=== PATIENT | female | born 1965 | race Two or more races ===

== ENCOUNTER 2017-01-23 19:08 | Emergency (ER) | payer SELFPAY ==
[~2017-01-23] VITALS: Ht 177.8 cm; Wt 90.7 kg
[2017-01-23 20:35] LABS: Basophils # (auto) 0.1 uL; Basophils % (auto) 0.4 % (0.0-2.0); Eosinophils # (auto) 0.1 uL; Eosinophils % (auto) 0.9 % (0.0-7.0); Hematocrit 40.8 % (36.0-46.0); Hemoglobin 13.8 g/dL (12.2-16.2); Lymphocytes # (auto) 5.3 uL; Lymphocytes % (auto) 38.9 % (10.0-50.0); Mean Corpuscular Hgb Conc. 33.7 g/dL (32.0-36.0); Monocytes # (auto) 0.8 uL; Monocytes % (auto) 5.5 % (0.0-12.0); Neutrophils # (auto) 7.3 uL; Neutrophils % (auto) 54.3 % (37.0-80.0); Nucleated Red Blood Cells % 0.1 %; Platelet Count (auto) 366 10^3/uL (140-450); Red Cell Distribution Width 13.2 % (11.8-14.3); White Blood Cell 13.6 10^3/uL (4.4-10.8)
[2017-01-23 20:41] LABS: Albumin 3.7 g/dL (3.4-5.0); Anion Gap 8 (5-15); Aspartate Aminotransferase 19 U/L (15-37); BUN/Creatinine Ratio 17.1; Blood Urea Nitrogen 12 mg/dL (7-18); Calcium 9.3 mg/dL (8.5-10.1); Carbon Dioxide 26 mmol/L (21-32); Chloride 105 mmol/L (98-107); GFR African American 113 mL/min; GFR Non-African American 93 mL/min; Glucose 90 mg/dL (74-106); Potassium 4.1 mmol/L (3.5-5.1); Sodium 139 mmol/L (136-145)
[2017-01-23 20:46] LABS: Alkaline Phosphatase 96 U/L (45-117); Bilirubin, Total 0.3 mg/dL (0.2-1.0); Total Protein 7.8 g/dL (6.4-8.2)
[2017-01-24 03:21] LABS: Urine Bilirubin Negative (Negative); Urine Blood TRACE /uL (Negative); Urine Color Yellow (Yellow); Urine Glucose Normal (Normal); Urine Ketone Negative (Negative); Urine Nitrite Negative (Negative); Urine RBC 1 /hpf (0 - 4); Urine Squamous Epithelial Cell FEW /hpf (<5); Urine Urobilinogen Normal (Negative); Urine pH 5.5 (5.0-8.0)
[2017-01-24] MEDS ORDERED: MORPHINE SULF INJ 2 MG/ML SYRINGE 1ML IV ONE (03:30)
[2017-01-24] MEDS ORDERED: ONDANSETRON HCL 4 MG/2 ML VIAL IV ONE (03:30)
[2017-01-24] MEDS ORDERED: SODIUM CHLORIDE 0.9% 1,000 ML IV ONE (03:30)
[2017-01-24 04:24] VITALS: BP 124/76
== END 2017-01-24 04:46 | disposition home or self-care (01) ==
LOC: ER 19:11
DX: K80.20 Calculus of gallbladder without cholecystitis without obstruction (principal); D72.829 Elevated white blood cell count, unspecified
CPT/HCPCS: 36415; 71020; 74176; 80053; 81001; 81025; 83690; 84484; 85025; 93005; 96361; 96374; 96375; 99285; J2270; J2405; J7030

== ENCOUNTER 2021-06-17 16:12 | Emergency (ER) | payer MEDICAID, OTHER ==
[~2021-06-17] VITALS: Ht 165.1 cm; Wt 77.1 kg
[2021-06-17 17:42] LABS: Urine Bacteria NONE SEEN /hpf (None Seen); Urine Blood Negative /uL (Negative); Urine Specific Gravity 1.007 (1.001-1.035); Urine WBC 1 /hpf (0 - 5)
[2021-06-17 18:32] LABS: Basophils # (auto) 0 10 ^3/uL (0-0.2); Basophils % (auto) 0.3 % (0.0-2.0); Eosinophils # (auto) 0.1 10 ^3/uL (0-0.8); Eosinophils % (auto) 1.2 % (0.0-7.0); Hematocrit 36.9 % (36.0-46.0); Hemoglobin 12.2 g/dL (12.2-16.2); Mean Corpuscular Hemoglobin 27.6 pg (28.0-32.0); Mean Corpuscular Hgb Conc. 33.2 g/dL (32.0-36.0); Mean Corpuscular Volume 83.4 fL (80.0-100.0); Monocytes # (auto) 0.4 10 ^3/uL (0-1.3); Monocytes % (auto) 5.6 % (0.0-12.0); Neutrophils % (auto) 52.9 % (37.0-80.0); Nucleated Red Blood Cells % 0.2 %; Red Blood Cells 4.42 10^6/uL (4.0-5.20); Red Cell Distribution Width 14.8 % (11.8-14.3); White Blood Cell 7.5 10^3/uL (4.4-10.8)
[2021-06-17 18:43] LABS: Albumin 3.7 g/dL (3.4-5.0); Calcium 9.2 mg/dL (8.5-10.1); Potassium 4.2 mmol/L (3.5-5.1)
[2021-06-17 18:45] LABS: BUN/Creatinine Ratio 24.2
[2021-06-17 18:47] LABS: Bilirubin, Total 0.2 mg/dL (0.2-1.0); Total Protein 7.6 g/dL (6.4-8.2)
[2021-06-17] MEDS ORDERED: IOHEXOL 300 MG/ML 100ML BOTTLE IJ ONE (19:58)
[2021-06-17] MEDS ORDERED: LIDOCAINE VISCOUS 2% 15ML UD PO ONE (20:45)
[2021-06-17] MEDS ORDERED: ALUM & MAG HYDROX-SIMETH LIQ(MAALOX) 30 ML PO ONE (20:45)
[2021-06-17] MEDS ORDERED: ONDANSETRON ODT 4 MG TAB PO ONE (20:45)
[2021-06-17] MEDS ORDERED: FAMOTIDINE 20 MG TAB PO ONE (20:45)
[2021-06-17 23:08] VITALS: BP 118/59
== END 2021-06-17 23:28 | disposition home or self-care (01) ==
LOC: ER 16:15
DX: K82.8 Other specified diseases of gallbladder (principal)
CPT/HCPCS: 36415; 71045; 74177; 76705; 80053; 81001; 82150; 83690; 84484; 85025; 93005; 99285; Q0162; Q9967

== ENCOUNTER 2023-05-21 12:16 | Emergency (ER) | payer MEDICAID ==
[~2023-05-21] VITALS: Ht 165.1 cm; Wt 87.3 kg
[2023-05-21 14:01] VITALS: BP 106/52; PULSE 95; RESP 16; TEMP 97.9; O2SAT 96
[2023-05-21 15:36] LABS: COVID19 ANTIGEN SOFIA FIA NEGATIVE (NEGATIVE); Rapid Strep A Screen-Throat Negative
[2023-05-21 15:37] LABS: Rapid Influenza A Negative (Negative)
[2023-05-21 15:39] LABS: Rapid Influenza B Positive (Negative)
[2023-05-21] MEDS ORDERED: AZIT500T66 PO (16:07)
== END 2023-05-21 16:10 | disposition home or self-care (01) ==
LOC: ER 12:16
DX: J10.1 Influenza due to other identified influenza virus with other respiratory manifestations (principal); J18.9 Pneumonia, unspecified organism; R07.89 Other chest pain; Z20.822 Contact with and (suspected) exposure to COVID-19
CPT/HCPCS: 36415; 71046; 87070; 87426; 87804; 87880

== ENCOUNTER 2024-12-03 13:56 | Inpatient (IN) | payer MEDICAID ==
[~2024-12-03] VITALS: Ht 165.1 cm; Wt 88.6 kg
[~2024-12-03 13:56] MED LIST: AZIT500T66 PO
[2024-12-03 14:46] LABS: Hematocrit 38.8 % (36.0-46.0); Hemoglobin 13.3 g/dL (12.2-16.2); Mean Corpuscular Hemoglobin 29.2 pg (28.0-32.0); Mean Corpuscular Volume 85.4 fL (80.0-100.0); Nucleated Red Blood Cells % 0.1 %
--- NOTE | 2024-12-03 14:50 | ED.PDOC ---
General HPI Comments 59 y/o F, with PMHx of cervical cancer, stomach cancer, DM, and HLD present to the ED for CC of urinary. Patient states, she has been experiencing hematuria with associated back pain onset, x1day ago. Patient denies burning with urination, flank pain, vaginal discharge, fever, or suprapubic abdominal pain. No other symptoms or modifying factors present at this time. Chief Complaint: Urinary Time Seen by MD: 14:30 Primary Care Provider: DENIES Reviewed notes: Nurses Notes, Medications, Allergies Allergies: Coded Allergies: NO KNOWN ALLERGIES (Unverified , 01/23/17) Home Meds Active Scripts Nitrofurantoin Monohydrate Mac (Macrobid) 100 Mg Cap, 100 MG PO BID for 7 Days, #14 CAP Prov:ELIO OWENS MD 12/03/24 Azithromycin (Azithromycin) 500 Mg Tab, 1 TAB PO DAILY, #3 TAB 500 mg PO once, then 250 mg PO once daily for 4 days Prov:KATHY HAWTHORNE PAC 05/21/23 Information Source: Patient Mode of Arrival: Ambulatory Severity: Moderate Timing: Days Duration: Since onset Prehospital treatment: None Onset: Spontaneous Symptoms: Hematuria History of: None Location: None Modifying factors: None associated signs and symptoms: Back Pain, Hematuria Past Medical History PAST MEDICAL HISTORY: Cancer, DM, Gallstones, High Lipids Surgical History: Denies all surgeries ORTHOPEDIC NURSE PRACTITIONER History: No Pertinent ORTHOPEDIC NURSE PRACTITIONER History Family History Family History: Unknown Social History Smoker: Non-Smoker Alcohol: Denies ETOH Use Drugs: Denies Drug Use Lives In: Home Constitutional: denies: chills, diaphoresis, fatigue, fever, malaise, sweats, weakness, others EENTM: denies: blurred vision, double vision, ear bleeding, ear discharge, ear drainage, ear pain, ear ringing, eye pain, eye redness, hearing loss, mouth pain, mouth swelling, nasal discharge, nose bleeding, nose congestion, nose pain, photophobia, tearing, throat pain, throat swelling, voice changes, others Respiratory: denies: cough, hemoptysis, orthopnea, SOB at rest, shortness of breath, SOB with excertion, stridor, wheezing, others Cardiovascular: denies: chest pain, dizzy spells, diaphoresis, Dyspnea on exertion, edema, irregular heart beat, left arm pain, lightheadedness, palpitations, PND, syncope, others Gastrointestinal: denies: abdomen distended, abdominal pain, blood streaked bowels, constipated, diarrhea, dysphagia, difficulty swallowing, hematemesis, melena, nausea, poor appetite, poor fluid intake, rectal bleeding, rectal pain, vomiting, others Genitourinary: reports: hematuria; denies: abnormal vagina bleeding, burning, dyspareunia, dysuria, flank pain, frequency, incontinence, pain, , vagina discharge, urgency, others Neurological: denies: dizziness, fainting, headache, left sided numbness, left sided weakness, numbness, paresthesia, pre-existing deficit, right sided numbness, right sided weakness, seizure, speech problems, tingling, tremors, weakness, others Musculoskeletal: reports: back pain; denies: gout, joint pain, joint swelling, muscle pain, muscle stiffness, neck pain, others Integumetry: denies: bruises, change in color, change in hair/nails, dryness, laceration, lesions, lumps, rash, wounds, others Allergic/Immunocompromised: denies: Difficulty Healing, Frequent Infections, Hives, Itching, others Hematologic/Lymphatic: denies: anemia, blood clots, easy bleeding, easy bruising, swollen glands, others Endocrine: denies: excessive hunger, excessive sweating, excessive thirst, excessive urination, flushing, intolerance to cold, intolerance to heat, unexplained weight gain, unexplained weight loss, others Psychiatric: denies: anxiety, bipolar disorder, depression, hopeless, panic disorder, schizophrenia, sleepless, suicidal, others All Other Systems: Reviewed and Negative Physical Exam General Appearance: Moderate Distress HEENT: Normal ENT Inspection, Pharynx Normal, TMs Normal Neck: Full Range of Motion, Non-Tender, Normal, Normal Inspection Respiratory: Chest Non-Tender, Lungs Clear, No Accessory Muscle Use, No Respiratory Distress, Normal Breath Sounds Cardiovascular: No Edema, No JVD, No Murmur, No Gallop, Normal Peripheral Pulses, Regular Rate/Rhythm Breast Exam: Deferred Gastrointestinal: No Organomegaly, Non Tender, No Pulsatile Mass, Normal Bowel Sounds, Soft Genitalia: Deferred Pelvic: Deferred Rectal: Deferred Extremities: No calf tenderness, Normal capillary refill, Normal inspection, Normal range of motion, Non-tender, No pedal edema Musculoskeletal : Apperance: Normal Neurologic: Alert, pharmacist critical care II-XII nml as Tested, No Motor Deficits, Normal Affect, Normal Mood, No Sensory Deficits Cerebellar Function: Normal Reflexes: Normal Skin: Dry, Normal Color, Warm Peripheral Pulses: 3+ Radial (R), 3+ Radial (L) Lymphatic: No Adenopathy Was a procedure done? Was a procedure done?: No Differential Diagnosis Kidney stone (Female): Pyelonephritis, Urinary obstruction, Urolithiasis Kidney stone (Male): N/A Penile/Scrotal: N/A Urinary Problem (Male): N/A Urinary Problem (Female): UTI X-Ray, Labs, Meds, VS Vital Signs Date Time Temp Pulse Resp B/P (MAP) Pulse Ox O2 Delivery O2 Flow Rate FiO2 12/03/24 13:56 98.3 78 16 155/85 99 98.3 Lab Test 12/03/24 14:32 Range/Units White Blood Count 8.5 4.4-10.8 10^3/uL Red Blood Count 4.54 4.0-5.20 10^6/uL Hemoglobin 13.3 12.2-16.2 g/dL Hematocrit 38.8 36.0-46.0 % Mean Corpuscular Volume 85.4 80.0-100.0 fL Mean Corpuscular Hemoglobin 29.2 28.0-32.0 pg Mean Corpuscular Hemoglobin Concent 34.2 32.0-36.0 g/dL Red Cell Distribution Width 13.9 11.8-14.3 % Platelet Count 270 140-450 10^3/uL Mean Platelet Volume 7.2 6.9-10.8 fL Neutrophils (%) (Auto) 52.9 37.0-80.0 % Lymphocytes (%) (Auto) 39.8 10.0-50.0 % Monocytes (%) (Auto) 6.0 0.0-12.0 % Eosinophils (%) (Auto) 0.9 0.0-7.0 % Basophils (%) (Auto) 0.4 0.0-2.0 % Neutrophils # (Auto) 4.5 1.6-8.6 10 ^3/uL Lymphocytes # (Auto) 3.4 0.4-5.4 10 ^3/uL Monocytes # (Auto) 0.5 0-1.3 10 ^3/uL Eosinophils # (Auto) 0.1 0-0.8 10 ^3/uL Basophils # (Auto) 0 0-0.2 10 ^3/uL Nucleated Red Blood Cells 0.1 % Sodium Level 141 136-145 mmol/L Potassium Level 4.2 3.5-5.1 mmol/L Chloride Level 105 98-107 mmol/L Carbon Dioxide Level 26 20-31 mmol/L Anion Gap 10 5-15 Blood Urea Nitrogen 12 9-23 mg/dL Creatinine 0.80 0.550-1.02 mg/dL Glomerular Filtration Rate Calc 84 >90 mL/min BUN/Creatinine Ratio 15.0 10.0-20.0 Serum Glucose 105 74-106 mg/dL Calcium Level 10.1 8.7-10.4 mg/dL Patient alert. Complaining of urinary symptoms. Blood pressure slightly elevated. Saturation pristine on room air. Was given clonidine. WBC within normal limits. Hemoglobin within normal limits. Possible urinary tract infection. Was given prescription of Macrobid antibiotic. Explained to the patient. Was told to follow up with her primary care physician. Was told to come back if there is any problem. She states that she has seen feeling bad. Body pains. Possibly early pyelonephritis. Was given Rocephin. Time of 1ST Reevaluation: 15:00 Reevaluation 1ST: Unchanged Patient Education/Counseling: Diagnosis, Treatment Family Education/Counseling: No Family Present SEPSIS Sepsis Screen Date sepsis recognized/suspect: Dec 03, 2024 Time Sepsis recognized/suspect: 1358 Recent Procedure: No On Antibiotic Therapy: No Respiratory Rate >20: No Heart Rate >90: No Temp<36 C (96.8 F) or >38.3 C: No SBP <90 or MAP <65 mmHG: No New Acute Mental Status Change: No Is the patient on CPAP, BIPAP,: No Physician Orders Urinalysis (12/03/24 14:23) Vital Signs Date Time Temp Pulse Resp B/P (MAP) Pulse Ox O2 Delivery O2 Flow Rate FiO2 12/03/24 13:56 98.3 78 16 155/85 99 98.3 Laboratory Tests Test 12/03/24 14:32 White Blood Count 8.5 10^3/uL (4.4-10.8) Departure 1 Departure Time of Disposition: 15:35 Impression: Primary Impression: HTN (hypertension) Qualified Codes: I10 - Essential (primary) hypertension Additional Impression: Urinary tract infection Qualified Codes: N30.00 - Acute cystitis without hematuria Disposition: ADMITTED INPATIENT Admit to: Med Surg Condition: Guarded e-Prescriptions Nitrofurantoin Monohydrate Mac (Macrobid) 100 Mg Cap 100 MG PO BID for 7 Days, #14 CAP Prov: ELIO OWENS MD 12/03/24 Critical Care Note Critical Care Time?: No Stability Stability form required: No Heart Score Heart Score: Heart Score Response (Comments) Value History N/A 0 EKG N/A 0 Age N/A 0 Risk Factors N/A 0 Troponin N/A 0 Total 0 I personally scribed for ELIO OWENS MD ([email or web address]) on 12/03/24 at 14:50. Electronically submitted by Nely Adamson [email or web address]). ELIO OWENS MD Dec 03, 2024 14:50
[2024-12-03 14:51] LABS: Chloride 105 mmol/L (98-107); Potassium 4.2 mmol/L (3.5-5.1); Sodium 141 mmol/L (136-145)
[2024-12-03 14:52] LABS: Anion Gap 10 (5-15); Calcium 10.1 mg/dL (8.7-10.4); Carbon Dioxide 26 mmol/L (20-31)
[2024-12-03 14:57] LABS: BUN/Creatinine Ratio 15.0 (10.0-20.0); Blood Urea Nitrogen 12 mg/dL (9-23); Glucose 105 mg/dL (74-106)
[2024-12-03] MEDS ORDERED: NITR-87 PO (15:36)
[2024-12-03] MEDS: ONDANSETRON HCL 4 MG/2 ML VIAL IV ONE (17:37)
[2024-12-03] MEDS: MORPHINE SULFATE INJ 2 MG/ml SYRG IV ONE (17:38)
[2024-12-03] MEDS: SODIUM CHLORIDE 0.9% 1,000 ML IV ONE (17:39)
[2024-12-03] MEDS: cefTRIAXone 1GM/50ML D5W 50 ML IV ONE (17:39)
[2024-12-03 18:17] LABS: Urine Protein, UAD 1+ (Negative); Urine WBC Clumps PRESENT /hpf (None Seen)
[2024-12-03] MEDS: SODIUM CHLORIDE 0.9% 1,000 ML IV SCH (22:45)
[2024-12-03] MEDS: ACETAMINOPHEN 500 MG TAB or CAP PO ONE (23:05)
[2024-12-03 23:07] VITALS: PULSE 68; RESP 16; O2SAT 98
--- NOTE | 2024-12-03 23:59 | DVHHPRES ---
History of Present Illness Resident Creating Document: MIKA MARISCAL RESIDENT History of Present Illness 59-year-old female with history of cervical cancer followed by bilateral salpingo-oophorectomy and brachytherapy, GI cancer on aggressive chemotherapy presents to the ER with the complaints of blood mixed urine since last 2 days. She denies any abdominal pain, reports having non-radiating back pain. She does not have any urinary frequency, urgency or burning sensation. She denies any chest pain, shortness of breath fever, nausea, vomiting or any other complaints. She does not have any history of renal stones. Patient reports having a chemo port for breast tumor on the right-side of the chest, under the skin. The patient requests to update the daughter about her condition, however, I was not able to reach out to her. Past medical history: Diabetes mellitus, Cervical cancers, GI cancers, possible breast cancers Past surgical history: Hysterectomy due to cervical cancer Home medications: Ozempic, rosuvastatin Family history: Noncontributory Patient lives with family Alcohol: Occasionally drinks beer Drugs: Never Smoking: Never Allergies: None Code status: Full code Review of Systems Genitourinary: Hematuria Musculoskeletal: back pain Allergies: Coded Allergies: NO KNOWN ALLERGIES (Unverified , 01/23/17) Medications Current Medications Medications Dose Ordered Sig/Jillian Route Start Time Stop Time Status Last Admin Dose Admin Sodium Chloride 1,000 ml @ 60 mls/hr [id number] IV 12/03/24 22:45 Exam Vital Signs Vital Signs Date Time Temp Pulse Resp B/P (MAP) Pulse Ox O2 Delivery O2 Flow Rate FiO2 12/03/24 23:07 68 16 112/72 (85) 98 12/03/24 23:07 Room Air* 0 21 12/03/24 21:28 97.7 97.7 Exam General Appearance: Alert, Oriented X3, Cooperative, Mild distress HEENT: Atraumatic, Mucous membranes moist/pink Respiratory: Right side of the chest has a chemo port below the skin, Clear to auscultation, Normal air movement, No added sounds Cardiovascular: Regular rate, Normal S1, Normal S2, No murmurs Abdominal/ : Active bowel sounds, Soft, no distention, no tenderness Extremities: No edema, Normal pulses, No tenderness/swelling Skin: No Significant rash, except past surgical scars Neuro: Normal speech, sensorimotor deficits none Psych/Mental Status: Mental status NL, Mood NL Nurse was there as certified drug counselor during examination Labs/Xrays Labs Test 12/03/24 17:21 12/03/24 14:32 Range/Units Urine Color Light-red Yellow Urine Clarity Turbid H Clear Urine pH 6.0 5.0-9.0 Urine Specific [place] 1.011 1.001-1.035 Urine Protein 1+ H Negative Urine Ketones Negative Negative Urine Blood 3+ H Negative /uL Urine Nitrite Negative Negative Urine Bilirubin Negative Negative Urine Urobilinogen Normal Negative mg/dL Urine Leukocyte Esterase 3+ Negative /uL Urine RBC 2852 0 - 4 /hpf Urine WBC Clumps Present None Seen /hpf Urine Microscopic WBC 322 H 0-5 /HPF Urine Squamous Epithelial Cells Few <5 /hpf Urine Bacteria None seen None Seen /hpf Urine Mucus Few None Seen Urine Glucose Normal Normal mg/dL White Blood Count 8.5 4.4-10.8 10^3/uL Red Blood Count 4.54 4.0-5.20 10^6/uL Hemoglobin 13.3 12.2-16.2 g/dL Hematocrit 38.8 36.0-46.0 % Mean Corpuscular Volume 85.4 80.0-100.0 fL Mean Corpuscular Hemoglobin 29.2 28.0-32.0 pg Mean Corpuscular Hemoglobin Concent 34.2 32.0-36.0 g/dL Red Cell Distribution Width 13.9 11.8-14.3 % Platelet Count 270 140-450 10^3/uL Mean Platelet Volume 7.2 6.9-10.8 fL Neutrophils (%) (Auto) 52.9 37.0-80.0 % Lymphocytes (%) (Auto) 39.8 10.0-50.0 % Monocytes (%) (Auto) 6.0 0.0-12.0 % Eosinophils (%) (Auto) 0.9 0.0-7.0 % Basophils (%) (Auto) 0.4 0.0-2.0 % Neutrophils # (Auto) 4.5 1.6-8.6 10 ^3/uL Lymphocytes # (Auto) 3.4 0.4-5.4 10 ^3/uL Monocytes # (Auto) 0.5 0-1.3 10 ^3/uL Eosinophils # (Auto) 0.1 0-0.8 10 ^3/uL Basophils # (Auto) 0 0-0.2 10 ^3/uL Nucleated Red Blood Cells 0.1 % Sodium Level 141 136-145 mmol/L Potassium Level 4.2 3.5-5.1 mmol/L Chloride Level 105 98-107 mmol/L Carbon Dioxide Level 26 20-31 mmol/L Anion Gap 10 5-15 Blood Urea Nitrogen 12 9-23 mg/dL Creatinine 0.80 0.550-1.02 mg/dL Glomerular Filtration Rate Calc 84 >90 mL/min BUN/Creatinine Ratio 15.0 10.0-20.0 Serum Glucose 105 74-106 mg/dL Calcium Level 10.1 8.7-10.4 mg/dL SEPSIS Sepsis Screen Date sepsis recognized/suspect: Dec 03, 2024 Time Sepsis recognized/suspect: 1357 Recent Procedure: No On Antibiotic Therapy: No Respiratory Rate >20: No Heart Rate >90: No Temp<36 C (96.8 F) or >38.3 C: No SBP <90 or MAP <65 mmHG: No New Acute Mental Status Change: No Is the patient on CPAP, BIPAP,: No Physician Orders Saline Lock (12/03/24 17:17) Admit (12/03/24 22:35) Allergies (12/03/24 22:35) Code Status (12/03/24 22:35) Sodium Chloride 0.9% (12/03/24 22:45) Complete Blood Count (12/04/24 04:00) Comprehensive Metabolic Panel (12/04/24 04:00) Cardiac Diet-2gna,Lofat,Lochol (12/04/24 Breakfast) Notify Md Of Changes From Base (12/03/24 22:35) Vital Signs Date Time Temp Pulse Resp B/P (MAP) Pulse Ox O2 Delivery O2 Flow Rate FiO2 12/03/24 23:07 68 16 112/72 (85) 98 12/03/24 23:07 68 16 98 Room Air* 0 21 12/03/24 21:28 97.7 68 12 133/93 (106) 97 97.7 12/03/24 18:37 98.1 68 14 130/50 (76) 96 98.1 12/03/24 18:37 68 14 96 Room Air 12/03/24 18:36 68 14 130/50 12/03/24 17:38 74 17 133/91 12/03/24 17:27 133/91 Laboratory Tests Test 12/03/24 14:32 White Blood Count 8.5 10^3/uL (4.4-10.8) Medications Medications Dose Ordered Sig/Jillian Route Start Time Stop Time Status Last Admin Dose Admin Acetaminophen 500 mg ONCE ONCE PO 12/03/24 22:45 12/03/24 22:47 DC 12/03/24 23:05 500 MG Ceftriaxone Sodium 50 ml @ 100 mls/hr ONCE ONCE IV 12/03/24 17:00 12/03/24 17:29 DC 12/03/24 17:39 100 MLS/HR Morphine Sulfate 2 mg ONCE ONCE IV 12/03/24 17:00 12/03/24 17:01 DC 12/03/24 17:38 2 MG Ondansetron HCl 4 mg ONCE ONCE IV 12/03/24 17:00 12/03/24 17:01 DC 12/03/24 17:37 4 MG Sodium Chloride 1,000 ml @ 1,000 mls/hr Q1H ONCE IV 12/03/24 14:30 12/03/24 15:29 DC 12/03/24 17:39 1,000 MLS/HR Assessment/Plan Assessment/Plan Hematuria due to severe UTI/renal stone -urinalysis reports: Turbid, urine blood 3+, urine microscopic WBC 322 -ceftriaxone 1 g IV daily ordered -CT abdomen pelvis:No evidence of urolithiasis, obstructive uropathy, diverticulitis or appendicitis.No bowel obstruction, mass or abnormal wall thickening.Porcelain gallbladder.Hysterectomy. -ultrasound abdomen: Gallstones versus porcelain gallbladder. No evidence of cholecystitis. No biliary obstruction -urology consulted for further evaluation Porcelain gallbladder -surgery consulted for cholecystectomy, high-risk for cholangiocarcinoma Pneumonia due to Gram-positive or negative organism -CXR Borderline cardiomegaly. There is right lower lobe infiltrate. Port-A-Cath is noted with tip in the SVC. -ceftriaxone and azithromycin Cardiomegaly due to undiagnosed hypertension/cardiomyopathy/pulmonary hypertension/valvular heart disease -BNP ordered -consider echocardiography and Cardiology consult, if deemed necessary based on further evaluation GI prophylaxis: Pantoprazole DVT prophylaxis: SCDs Diet: Cardiac Goals of care discussed with the patient for more than 27 minutes: Full code status Case discussed with Dr. Schaefer, patient and RN Plan discussed with: Patient, Other (RN) My Orders Orders - MIKA MARISCAL Procedure Category Date Status Time Admit ADMIT 12/03/24 Transmitted 22:35 Allergies MERLINE 12/03/24 In Process 22:35 Code Status CODE 12/03/24 Transmitted 22:35 Sodium Chloride 0.9% PHA 12/03/24 In Process 22:45 Complete Blood Count LAB 12/04/24 Verified 04:00 Comprehensive LAB 12/04/24 Verified Metabolic Panel 04:00 Cardiac DIET 12/04/24 Transmitted Diet-2gna,Lofat,Lochol Breakfast Notify Md Of Changes [facility] 12/03/24 In Process From Base 22:35 Common Visit Codes: 33134-ZPWKEPW INP/OBS CARE (HIGH) Secondary Visit Codes: 04196-[id number] CARE PLAN 30 MINUTES MIKA MARISCAL Dec 03, 2024 23:59
[2024-12-04 01:16] VITALS: BP 138/64; PULSE 62; RESP 18; TEMP 97.7; O2SAT 98
[2024-12-04] MEDS ORDERED: ROSU20TA56 PO (01:19)
[2024-12-04] MEDS ORDERED: SEMA1INJ2 SC (01:19)
[2024-12-04] MEDS ORDERED: cefTRIAXone 1GM/50ML D5W 50 ML IV ONE (03:15)
[2024-12-04 05:08] LABS: Hematocrit 35.0 % (36.0-46.0); Hemoglobin 12.0 g/dL (12.2-16.2); Mean Corpuscular Hemoglobin 29.4 pg (28.0-32.0); Mean Corpuscular Volume 85.9 fL (80.0-100.0); Nucleated Red Blood Cells % 0.1 %
[2024-12-04 05:29] LABS: Alanine Aminotransferase 17 U/L (7-40); Albumin 4.3 g/dL (3.2-4.8); Alkaline Phosphatase 92 U/L (46-116); Anion Gap 10 (5-15); BUN/Creatinine Ratio 14.3 (10.0-20.0); Blood Urea Nitrogen 10 mg/dL (9-23); Calcium 9.1 mg/dL (8.7-10.4); Carbon Dioxide 23 mmol/L (20-31); Glucose 93 mg/dL (74-106); Potassium 3.9 mmol/L (3.5-5.1); Sodium 141 mmol/L (136-145); Total Protein 6.5 g/dL (5.7-8.2)
[2024-12-04 05:30] LABS: Bilirubin, Total 0.6 mg/dL (0.2-1.0)
[2024-12-04 05:31] LABS: Chloride 108 mmol/L (98-107)
[2024-12-04] MEDS: AZITHROMYCIN 500MG/ 250ML 250 ML IV ONE (05:46)
[2024-12-04 06:27] VITALS: BP 123/69; PULSE 69; RESP 18; TEMP 97.4; O2SAT 97
--- NOTE | 2024-12-04 08:53 | DVH ---
EXAM: XY CHEST PORTABLE Indication: cough Technique: Single frontal view of the chest was obtained Comparison: XY CHEST TWO VIEWS ROUTINE on DOS: 05/21/23, CHEST PORTABLE on DOS: 06/17/21 FINDINGS: Lines and Tubes: Right chest port tip projects over superior vena cava. Lungs: No focal consolidation. Pleura: No effusion. No pneumothorax. Cardiomediastinal contours: Unremarkable. Atherosclerotic vascular calcifications of the thoracic ao rta are noted. Bones: No acute osseous abnormality. IMPRESSION: No acute cardiopulmonary disease.
[2024-12-04] MEDS ORDERED: cefTRIAXone 1GM/50ML D5W 50 ML IV SCH (09:00)
[2024-12-04] MEDS: PANTOPRAZOLE 40 MG/10 ML VIAL INJ IV SCH (09:29)
--- NOTE | 2024-12-04 11:36 | DVH ---
Technique: Real-time ultrasound images through the bladder. Indication: HEMATURIA Comparison: None Findings: Moderate distention of the bladder. Bladder prevoid volume of 114 cc. Bladder wall thickness of 3 mm. Impression: Moderate distention of the bladder without definitive focal wall thickening. Further evaluation with cystoscopy can be obtained as clinically warranted.
[2024-12-04] MEDS ORDERED: OMNIPAQUE 12mg/ml 500ml ORAL SOLUTION PO ONE (14:33)
--- NOTE | 2024-12-04 14:41 | DVHPNRES ---
Progress Note Date Seen: Dec 04, 2024 Resident Creating Document: LIAM WOLF RESIDENT Medical Necessity Reason Pt with a Central, PICC or Fol: No (RN) Subjective Review of Systems This is a 59 years old female has past medical history of cervical cancer, GI cancer to the ER with complaint of bloody urine for past 2 days. Patient also complains with lower abdominal pain, radiated to right shoulder, and right arm. She does not have any history of renal stones. Patient reports having a chemo port for breast tumor on the right-side of the chest, under the skin. She reports having no sick contact, denies any fevers, chills, diaphoresis, chest pain, headache, dizziness or change in bowel and bladder habits. Past medical history: Cervical cancer, GI cancer, Breast tumor, DM Past surgical history: Bilateral salingo-oophorectomy, Hysterectomy Home medications: Ozempic, Rosuvastatin Smoking: None Alcohol: Occasionally drinks beer Drug: None Allergies: Coded Allergies: NO KNOWN ALLERGIES (Unverified , 01/23/17). Patient seen and examined at bedside. Patient is alert and oriented to time, place person and responding to all questions. Eyes: No Pain, No Vision change, No Conjunctivae inflammation, No Eyelid inflammation, No Other, No Redness ENT: No Ear pain, No Ear discharge, No Nose pain, No Nose discharge, No Nose congestion, No Mouth pain, No Mouth swelling, No Throat pain, No Throat swelling, No Other Cardiovascular: No Chest Pain, No Palpitations, No Orthopnea, No Paroxysmal No Dyspnea, No Edema, No Lt Headedness, No Other Respiratory: No Cough, No Dry, No Shortness of breath, No SOB with exertion, No Wheezing, No Hemoptysis, No Pleuritic Pain, No Sputum, No Other Gastrointestinal: Lower abdominal Pain. No Nausea, No Vomiting, No Diarrhea, No Constipation, No Melena, No Hematochezia, No Other Genitourinary: Hematuria, No Dysuria, No Frequency, No Incontinence, No Retention, No Other Musculoskeletal: Right shoulder pain, Right arm pain, back pain. No other, No neck pain, No hand pain, No leg pain, No foot pain Skin: No Rash, No Lesions, No Jaundice, No Bruising, No Other Objective vital signs Vital Sign Date Time Temp Pulse Resp B/P (MAP) Pulse Ox O2 Delivery O2 Flow Rate FiO2 8/8/25 06:27 97.4 69 18 123/69 (87) 97 97.4 12/03/24 23:07 Room Air* 0 21 Total Intake and Output 12/03/24 12/03/24 12/04/24 15:00 23:00 07:00 Intake Total 1050 ml Balance 1050 ml medications Current Medications Medications Dose Ordered Sig/Jillian Route Start Time Stop Time Status Last Admin Dose Admin Sodium Chloride 1,000 ml @ 60 mls/hr [id number] IV 12/03/24 22:45 Ceftriaxone Sodium 50 ml @ 100 mls/hr DAILY@1700 IV 12/04/24 17:00 Pantoprazole Sodium 40 mg DAILY IV 12/04/24 10:00 12/04/24 09:29 40 MG Examination General Appearance: Alert, Oriented X3, Cooperative, Mild distress HEENT: Atraumatic, Mucous membranes moist/pink Respiratory: Right side of the chest has a chemo port below the skin, Clear to auscultation, Normal air movement, No added sounds Cardiovascular: Regular rate, Normal S1, Normal S2, No murmurs Abdominal/ : Active bowel sounds, Soft, no distention, no tenderness Extremities: Lower abdominal tenderness. No edema, Normal pulses, No swelling Skin: No Significant rash, except past surgical scars Neuro: Normal speech, sensorimotor deficits none Psych/Mental Status: Mental status NL, Mood NL Nurse was there as computer meteorologist during examination laboratory and microbiology Laboratory Tests 12/04/24 04:41 Test 12/04/24 04:41 Range/Units Serum Glucose 93 74-106 mg/dL Labs and/or images reviewed: Labs reviewed by me, Image(s) reviewed by me Problem List/Assessment/Plan Problem List/Assessment/Plan # Hematuria -Urinalysis- Turbid, Protein 1+, Blood 3+, Microscopic WBC 322 -CT abdomen pelvis (2021):No evidence of urolithiasis, obstructive uropathy, diverticulitis or appendicitis.No bowel obstruction, mass or abnormal wall thickening.Porcelain gallbladder.Hysterectomy. -ultrasound abdomen: Gallstones versus porcelain gallbladder. No evidence of cholecystitis. No biliary obstruction -Bladder US - Moderate distention of the bladder without definitive focal wall thickening. Further evaluation with cystoscopy can be obtained as clinically warranted. -Urology consulted - ordered repeat CTAP # Possible acute complicated UTI -ceftriaxone 1 g IV daily ordered # History of cervical cancer # History of GI cancer -Chest X-Ray- No acute cardiopulmonary disease. -monitor Diet: Cardiac GI prophylaxis: Pantoprazole DVT prophylaxis: SCDs Goals of care: Full code, discussed for >16 minutes on 12/04/24 Plan discussed with patient Plan discussed with Dr. Villatoro Plan discussed with: Patient, Other (RN) My Orders My Orders Orders - LIAM WOLF RESIDENT Procedure Category Date Status Time Ct Abd Pelvis W CT 12/04/24 Logged Con-Oral & Iv 14:26 Date of Service: Dec 04, 2024 Billing Provider: JULISSA VILLATORO MD Common Visit Codes: 60583-[id number] INP/OBS CARE(HIGH) Secondary Visit Codes: 89780-[id number] CARE PLAN 30 MINUTES LIAM WOLF RESIDENT Dec 04, 2024 14:41 SABRINA FIERRO RESIDENT Dec 04, 2024 17:21 JULISSA VILLATORO MD Dec 06, 2024 22:18
[2024-12-04 16:31] VITALS: BP 113/56; PULSE 72; TEMP 98.3; O2SAT 95
[2024-12-04] MEDS ORDERED: IOHEXOL 300 MG/ML 100ML BOTTLE IJ ONE (16:35)
[2024-12-04 17:07] LABS: Alanine Aminotransferase 23.0 U/L (7-40); Alkaline Phosphatase 107.0 U/L (46-116); Total Protein 7.6 g/dL (5.7-8.2)
[2024-12-04 17:08] LABS: Bilirubin, Direct 0.2 mg/dL (<0.3); Bilirubin, Total 0.6 mg/dL (0.2-1.0)
[2024-12-04 17:25] LABS: Albumin 5.0 g/dL (3.2-4.8)
--- NOTE | 2024-12-04 17:34 | DVH ---
COMPUTERIZED TOMOGRAPHY ABDOMEN AND PELVIS WITH CONTRAST REASON FOR EXAM: HX ABNORMAL CT RESULTS COMPARISON: CT AB PEL WITH IV CON ONLY on DOS: 06/17/21 TECHNIQUE: The exam was performed on a Multidetector scanner. Spiral scans were acquired from the tawanna phragm to the symphysis pubis after administration of IV contrast. 2-D coronal and sagittal reformatt ed images were provided. Radiation optimization: All CT scans at this facility use at least one of th nahun dose optimization techniques: Automated exposure control mA and/or kV adjustment per patient size (includes targeted exams where dose is matched to clinical indication) or iterative reconstruction. Oral contrast was also administered. CONTRAST ADMINISTRATION: 84 mL omnipaque 300 intravenously RADIATION DOSE: CTDI: 24.39 mGy DLP: 1330 mGy-cm FINDINGS: There is minimal dependent atelectasis in bilateral lower lobes of the lungs. There is no pleural eff usion. There is no pericardial effusion. The spleen is not enlarged. The liver is normal in size. Evaluation of the abdominal organs is degra ded by streak artifact from the patient's arms. The portal vein is patent. There is thin calcificatio n at the periphery of the gallbladder that may represent porcelain gallbladder versus a peripherally calcified stone filling the majority of the gallbladder. There is no pericholecystic edema. The pancr eas is grossly unremarkable. The adrenal glands are normal. The kidneys enhance symmetrically. No s olid renal mass is identified. There is no hydronephrosis of either kidney. The urinary bladder is th ick walled. The uterus is absent. The ovaries are not seen. There is no abdominal aortic aneurysm. T here is no pathologic lymphadenopathy by size criteria. No free fluid is identified in the abdomen or pelvis. There is mild sigmoid diverticulosis without evidence of diverticulitis. The colonic stool b urden is small. The appendix is normal. There is no pathologic distention of the small bowel to sugge st obstruction. There are bilateral gluteal prostheses. No acute osseous abnormality is identified. IMPRESSION: Thin calcification at the periphery of the gallbladder that may represent porcelain gallbladder versu s a peripherally calcified stone filling the majority of the gallbladder. Follow-up ultrasound is rec ommended. Thick-walled urinary bladder. Correlate clinically and with urinalysis for possible cystitis. Mild descending colon diverticulosis without evidence of diverticulitis. Normal appendix Prior hysterectomy
[2024-12-04 18:04] VITALS: BP 138/76; PULSE 77; RESP 16; TEMP 98; O2SAT 98
[2024-12-04] MEDS: cefTRIAXone 1GM/50ML D5W 50 ML IV SCH (18:22)
[2024-12-04 20:00] VITALS: PULSE 70; RESP 18; O2SAT 99
[2024-12-04 21:00] VITALS: BP 141/61; PULSE 70; RESP 18; TEMP 98; O2SAT 99
[2024-12-05] MEDS: HYDROcodone-ACET 5/325MG TAB PO ONE (00:23)
[2024-12-05 01:00] VITALS: BP 128/77; PULSE 70; RESP 18; TEMP 98.3; O2SAT 94
[2024-12-05 08:02] LABS: Hematocrit 38.7 % (36.0-46.0); Hemoglobin 13.1 g/dL (12.2-16.2); Mean Corpuscular Hemoglobin 29.3 pg (28.0-32.0); Mean Corpuscular Volume 86.8 fL (80.0-100.0); Nucleated Red Blood Cells % 0.2 %
[2024-12-05 08:08] LABS: Anion Gap 9 (5-15); Carbon Dioxide 26 mmol/L (20-31); Chloride 105 mmol/L (98-107); Potassium 4.0 mmol/L (3.5-5.1); Sodium 140 mmol/L (136-145)
[2024-12-05 08:10] LABS: Calcium 9.3 mg/dL (8.7-10.4)
[2024-12-05 08:14] LABS: BUN/Creatinine Ratio 8.6 (10.0-20.0); Glucose 95 mg/dL (74-106)
[2024-12-05 08:20] LABS: Blood Urea Nitrogen 6 mg/dL (9-23)
[2024-12-05 09:00] VITALS: BP 137/77; PULSE 62; RESP 20; TEMP 96.6; O2SAT 97
[2024-12-05] MEDS ORDERED: AZITHROMYCIN 500MG/ 250ML 250 ML IV SCH (10:00)
--- NOTE | 2024-12-05 12:03 | DVHINCON2 ---
Date of service: Dec 05, 2024 Family History: CKD (chronic kidney disease) G8 FATHER Diabetes mellitus G8 MOTHER, FH: cancer Hypertension G8 MOTHER, G8 FATHER Allergies: Coded Allergies: NO KNOWN ALLERGIES (Unverified , 01/23/17) Home Meds Reported Medications Semaglutide (Ozempic) 8 Mg/3 Ml Inj, 2 MG SC QWEEKLY 12/04/24 Rosuvastatin Calcium (Rosuvastatin Calcium) 20 Mg Tab, 1 TAB PO HS 12/04/24 Current Medications Current Medications Medications (Trade) Dose Ordered Sig/Jillian Route PRN Reason Start Time Stop Time Status Last Admin Ceftriaxone Sodium 50 ml @ 100 mls/hr DAILY@1700 IV 12/04/24 17:00 12/04/24 18:22 Azithromycin 250 ml @ 125 mls/hr DAILY IV 12/05/24 10:00 12/04/24 09:37 DC Vital Signs Vital Signs Date Time Temp Pulse Resp B/P (MAP) Pulse Ox O2 Delivery O2 Flow Rate FiO2 12/05/24 09:00 96.6 62 20 137/77 (97) 97 96.6 12/05/24 08:10 Room Air* 0 21 Labs/Diagnostic Data Labs Test 12/05/24 07:38 12/04/24 16:30 12/04/24 04:41 12/03/24 17:21 Range/Units White Blood Count 6.8 4.4-10.8 10^3/uL Red Blood Count 4.46 4.0-5.20 10^6/uL Hemoglobin 13.1 12.2-16.2 g/dL Hematocrit 38.7 # 36.0-46.0 % Mean Corpuscular Volume 86.8 80.0-100.0 fL Mean Corpuscular Hemoglobin 29.3 28.0-32.0 pg Mean Corpuscular Hemoglobin Concent 33.8 32.0-36.0 g/dL Red Cell Distribution Width 13.8 11.8-14.3 % Platelet Count 277 140-450 10^3/uL Mean Platelet Volume 7.3 6.9-10.8 fL Neutrophils (%) (Auto) 42.4 37.0-80.0 % Lymphocytes (%) (Auto) 48.4 10.0-50.0 % Monocytes (%) (Auto) 6.9 0.0-12.0 % Eosinophils (%) (Auto) 1.7 0.0-7.0 % Basophils (%) (Auto) 0.6 0.0-2.0 % Neutrophils # (Auto) 2.9 1.6-8.6 10 ^3/uL Lymphocytes # (Auto) 3.3 0.4-5.4 10 ^3/uL Monocytes # (Auto) 0.5 0-1.3 10 ^3/uL Eosinophils # (Auto) 0.1 0-0.8 10 ^3/uL Basophils # (Auto) 0 0-0.2 10 ^3/uL Nucleated Red Blood Cells 0.2 % Sodium Level 140 136-145 mmol/L Potassium Level 4.0 3.5-5.1 mmol/L Chloride Level 105 98-107 mmol/L Carbon Dioxide Level 26 20-31 mmol/L Anion Gap 9 5-15 Blood Urea Nitrogen 6 L 9-23 mg/dL Creatinine 0.70 0.550-1.02 mg/dL Glomerular Filtration Rate Calc 99 >90 mL/min BUN/Creatinine Ratio 8.6 L 10.0-20.0 Serum Glucose 95 74-106 mg/dL Calcium Level 9.3 8.7-10.4 mg/dL Total Bilirubin 0.6 0.2-1.0 mg/dL Direct Bilirubin 0.2 <0.3 mg/dL Aspartate Amino Transferase (AST) 27 13-40 U/L Alanine Aminotransferase (ALT) 23 7-40 U/L Alkaline Phosphatase 107 46-116 U/L Total Protein 7.6 5.7-8.2 g/dL Albumin 5.0 H 3.2-4.8 g/dL B-Type Natriuretic Peptide 14.40 0-100 pg/mL Urine Color Light-red Yellow Urine Clarity Turbid H Clear Urine pH 6.0 5.0-9.0 Urine Specific [place] 1.011 1.001-1.035 Urine Protein 1+ H Negative Urine Ketones Negative Negative Urine Blood 3+ H Negative /uL Urine Nitrite Negative Negative Urine Bilirubin Negative Negative Urine Urobilinogen Normal Negative mg/dL Urine Leukocyte Esterase 3+ Negative /uL Urine RBC 2852 0 - 4 /hpf Urine WBC Clumps Present None Seen /hpf Urine Microscopic WBC 322 H 0-5 /HPF Urine Squamous Epithelial Cells Few <5 /hpf Urine Bacteria None seen None Seen /hpf Urine Mucus Few None Seen Urine Glucose Normal Normal mg/dL Assessment [id number] AFEBRILE VSS ABD PAIN RESOLVING CHOLELITHIASIS UROLOGY EVAL ONGOING CONSIDER ELECTIVE GB SURGERY INDICATED NURSE AND FAMILY AT BEDSIDE Plan discussed with: Other GENI GALVAN MD Dec 05, 2024 12:03
[2024-12-05 13:00] VITALS: BP 130/77; PULSE 72; RESP 20; TEMP 97.2; O2SAT 95
--- NOTE | 2024-12-05 14:05 | DVHINCON2 ---
DATE OF CONSULTATION: 12/05/2024 HISTORY OF PRESENT ILLNESS: This patient is 59 years old, coming in with history of cervical cancer and followed by bilateral salpingo-oophorectomy and brachytherapy. She also had bleeding in her urine for which Urology evaluation has been considered and has now complained of right upper quadrant pain for which I was asked to see her. Imaging studies show evidence of possibility of cholelithiasis and so she has minimal pain in her right upper quadrant now. No nausea or vomiting. No constipation or diarrhea. No hematochezia or melena. No bleeding per rectum. PAST MEDICAL HISTORY: Diabetes, cervical cancer, GI cancer, possible breast cancer, PAST SURGICAL HISTORY: Hysterectomy due to cervical cancer. PHYSICAL EXAMINATION: VITAL SIGNS: Afebrile, stable signs. HEENT: With no evidence of pallor, cyanosis, or jaundice. NECK: Supple and nontender, with no thyromegaly or lymphadenopathy. CHEST AND LUNGS: Clear. HEART: Within normal limits. ABDOMEN: Soft. NEUROLOGIC: Not assessed. CLINICAL IMPRESSION: Rule out biliary colic, acute cholecystitis. At this point, she probably has a resolving biliary abdominal pain that would necessitate acute surgical intervention. PLAN: The plan will be to consider elective study of the gallbladder once the Urology evaluation has been done and resolved. The patient agrees with the plan. MD TOLU Corona/MIGUEL/RAINA TID: [id number] RECEIPT: [id number] cc:
[2024-12-05] MEDS: SODIUM CHLORIDE 0.9% 1,000 ML IV SCH (15:32)
[2024-12-05 17:00] VITALS: BP 132/65; PULSE 71; RESP 20; TEMP 97; O2SAT 96
--- NOTE | 2024-12-05 18:02 | DVHPN2 ---
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) Changes from previous H/P or p: No Changes Genitourinary: Hematuria Musculoskeletal: back pain Objective Vitals Vital Signs Date Time Temp Pulse Resp B/P (MAP) Pulse Ox O2 Delivery O2 Flow Rate FiO2 12/05/24 17:00 97.0 71 20 132/65 (87) 96 97.0 12/05/24 08:10 Room Air* 0 21 Intake/Output Intake and Output 12/05/24 07:00 Intake Total 50 ml Balance 50 ml Intake Oral 0 ml IV Total 50 ml General Appearance: Alert, Oriented X3, Cooperative, No acute distress HEENT: Atraumatic Lungs: Clear to auscultation Cardiovascular: Regular rate Abdomen: Other (Some tenderness to palpation/possibly disproportionate to the palpation) Medications Current Medications Medications Dose Ordered Sig/Jillian Route Start Time Stop Time Status Last Admin Dose Admin Ceftriaxone Sodium 50 ml @ 100 mls/hr DAILY@1700 IV 12/04/24 17:00 12/05/24 16:00 100 MLS/HR Pantoprazole Sodium 40 mg DAILY IV 12/04/24 10:00 12/05/24 08:26 40 MG Sodium Chloride 1,000 ml @ 100 mls/hr Q10H IV 12/05/24 14:45 12/05/24 15:32 100 MLS/HR Laboratory Results Laboratory Tests 12/05/24 07:38 Chemistry Test 12/05/24 07:38 Calcium Level 9.3 mg/dL (8.7-10.4) Urinalysis Test 12/03/24 17:21 Urine Color Light-red (Yellow) Urine Clarity Turbid (Clear) H Urine pH 6.0 (5.0-9.0) Urine Specific [place] 1.011 (1.001-1.035) Urine Protein 1+ (Negative) H Urine Ketones Negative (Negative) Urine Blood 3+ /uL (Negative) H Urine Nitrite Negative (Negative) Urine Bilirubin Negative (Negative) Urine Urobilinogen Normal mg/dL (Negative) Urine Leukocyte Esterase 3+ /uL (Negative) Urine RBC 2852 /hpf (0 - 4) Urine WBC Clumps Present /hpf (None Seen) Urine Microscopic WBC 322 /HPF (0-5) H Urine Squamous Epithelial Cells Few /hpf (<5) Urine Bacteria None seen /hpf (None Seen) Urine Mucus Few (None Seen) Urine Glucose Normal mg/dL (Normal) Microbiology Microbiology Date/Time Source Procedure Growth Status 12/03/24 17:21 Voided Urine Urine Culture - Preliminary Resulted Assessment/Plan Assessment/Plan Hematuria UTI and cystitis Diverticulosis Cholelithiasis/porcelain gallbladder History of hysterectomy History of cervical cancer in remission/five years ago History of stomach cancer/in remission/treated at the same time as the cervical cancer according to the patient Breast none cancer tumors with repeated biopsy negative as of few months ago Obesity Plan: Increase IV fluids. Pain control. Continue IV antibiotics. Proton pump inhibitor. Continue current plan of care Plan discussed with: Patient My Orders Orders - TURNER PENNY MD Procedure Category Date Status Time Sodium Chloride 0.9% PHA 12/05/24 In Process 14:45 Date of Service: Dec 05, 2024 Billing Provider: TURNER PENNY MD Common Visit Codes: [id number] INP/OBS CARE(HIGH) TURNER PENNY MD Dec 05, 2024 18:02
[2024-12-05 20:52] VITALS: BP 132/78; PULSE 74; RESP 17; TEMP 97.5; O2SAT 91
[2024-12-06 01:00] VITALS: BP 132/73; PULSE 73; RESP 16; TEMP 98.3; O2SAT 97
[2024-12-06 04:57] VITALS: BP 129/78; PULSE 71; RESP 16; TEMP 98.1; O2SAT 96
[2024-12-06] MEDS: HYDROcodone-ACET 10/325MG TAB PO PRN (08:13)
[2024-12-06 09:00] VITALS: BP 131/72; PULSE 67; RESP 20; TEMP 96.5; O2SAT 97
[2024-12-06 12:42] VITALS: BP 136/82; PULSE 74; RESP 20; TEMP 96; O2SAT 97
--- NOTE | 2024-12-06 12:45 | DVHPNRES ---
Progress Note Date Seen: Dec 06, 2024 Resident Creating Document: LIAM WOLF RESIDENT Medical Necessity Reason Pt with a Central, PICC or Fol: No (RN) Subjective Review of Systems This is a 59 years old female has past medical history of cervical cancer, gastric cancer to the ER with complaint of bloody urine for past 2 days. Patient also complains with lower abdominal pain, radiated to right shoulder, and right arm. She does not have any history of renal stones. Patient reports having a chemo port for breast tumor on the right-side of the chest, under the skin. She reports having no sick contact, denies any fevers, chills, diaphoresis, chest pain, headache, dizziness or change in bowel and bladder habits. Patient seen at bedside. Patient today complained of pain in the neck and right shoulder, arm. She also complains of lower abdominal pain during urination. Patient denies any hematemesis, hemoptysis, night sweats, tremors, visual hallucinations, headaches. Past medical history: Cervical cancer, Gastric cancer, Breast tumor, DM Past surgical history: Bilateral salingo-oophorectomy, Hysterectomy Family history: Father: Heart pacemaker, ESRD on dialysis. Mother: Gastric cancer. Home medications: Ozempic, Rosuvastatin Smoking: None Alcohol: Occasionally drinks beer Drug: None Allergies: Coded Allergies: NO KNOWN ALLERGIES (Unverified , 01/23/17). Patient seen and examined at bedside. Patient is alert and oriented to time, place person and responding to all questions. Eyes: No Pain, No Vision change, No Conjunctivae inflammation, No Eyelid inflammation, No Other, No Redness ENT: No Ear pain, No Ear discharge, No Nose pain, No Nose discharge, No Nose congestion, No Mouth pain, No Mouth swelling, No Throat pain, No Throat swelling, No Other Cardiovascular: No Chest Pain, No Palpitations, No Orthopnea, No Paroxysmal No Dyspnea, No Edema, No Lt Headedness, No Other Respiratory: No Cough, No Dry, No Shortness of breath, No SOB with exertion, No Wheezing, No Hemoptysis, No Pleuritic Pain, No Sputum, No Other Gastrointestinal: Lower abdominal Pain. No Nausea, No Vomiting, No Diarrhea, No Constipation, No Melena, No Hematochezia, No Other Genitourinary: Hematuria, No Dysuria, No Frequency, No Incontinence, No Retention, No Other Musculoskeletal: Right shoulder pain, Right arm pain, back pain. No other, No neck pain, No hand pain, No leg pain, No foot pain Skin: No Rash, No Lesions, No Jaundice, No Bruising, No Other Objective vital signs Vital Sign Date Time Temp Pulse Resp B/P (MAP) Pulse Ox O2 Delivery O2 Flow Rate FiO2 12/06/24 12:42 96.0 74 20 136/82 (100) 97 96.0 12/06/24 08:08 Room Air* 0 21 Total Intake and Output 12/05/24 12/05/24 12/06/24 15:00 23:00 07:00 Intake Total 476 ml 720 ml 1000 ml Balance 476 ml 720 ml 1000 ml medications Current Medications Medications Dose Ordered Sig/Jillian Route Start Time Stop Time Status Last Admin Dose Admin Ceftriaxone Sodium 50 ml @ 100 mls/hr DAILY@1700 IV 12/04/24 17:00 12/05/24 16:00 100 MLS/HR Pantoprazole Sodium 40 mg DAILY IV 12/04/24 10:00 12/06/24 08:13 40 MG Sodium Chloride 1,000 ml @ 100 mls/hr Q10H IV 12/05/24 14:45 12/06/24 10:49 100 MLS/HR Acetaminophen/ Hydrocodone Bitart 1 tab Q6HP PRN PO 12/05/24 20:45 12/06/24 08:13 1 TAB Examination General Appearance: Alert, Oriented X3, Cooperative, Mild distress HEENT: Atraumatic, Mucous membranes moist/pink Respiratory: Right side of the chest has a chemo port below the skin, Clear to auscultation, Normal air movement, No added sounds Cardiovascular: Regular rate, Normal S1, Normal S2, No murmurs Abdominal/ : Active bowel sounds, Soft, no distention, no tenderness Extremities: Lower abdominal tenderness. No edema, Normal pulses, No swelling Skin: No Significant rash, except past surgical scars Neuro: Normal speech, sensorimotor deficits none Psych/Mental Status: Mental status NL, Mood NL Nurse was there as injection molding machine offbearer during examination laboratory and microbiology Laboratory Tests 12/05/24 07:38 Test 12/05/24 07:38 Range/Units Serum Glucose 95 74-106 mg/dL Microbiology Date/Time Source Procedure Growth Status 12/03/24 17:21 Voided Urine Urine Culture - Final Complete Labs and/or images reviewed: Labs reviewed by me, Image(s) reviewed by me (RN) Problem List/Assessment/Plan Problem List/Assessment/Plan # Hematuria r/o cancer recurrence -Urinalysis- Turbid, Protein 1+, Blood 3+, Microscopic WBC 322 -CT abdomen pelvis: Thin calcification at the periphery of the gallbladder that may represent porcelain gallbladder versus a peripherally calcified stone filling the majority of the gallbladder. Follow-up ultrasound is recommended. Thick-walled urinary bladder. -ultrasound abdomen: Gallstones versus porcelain gallbladder. No evidence of cholecystitis. No biliary obstruction -Bladder US - Moderate distention of the bladder without definitive focal wall thickening. Further evaluation with cystoscopy can be obtained as clinically warranted. -Urology consulted # Possible acute complicated UTI -ceftriaxone 1 g IV daily ordered # History of cervical cancer # History of gastric cancer -Chest X-Ray- No acute cardiopulmonary disease. -monitor Diet: Cardiac GI prophylaxis: Pantoprazole DVT prophylaxis: SCDs Goals of care: Full code, discussed for >16 minutes on 12/06/24 Plan discussed with patient Plan discussed with Dr. Penny Plan discussed with: Patient, Other Date of Service: Dec 06, 2024 Billing Provider: TURNER PENNY MD Common Visit Codes: [id number] INP/OBS CARE(HIGH) LIAM WOLF RESIDENT Dec 06, 2024 12:45 TURNER PENNY MD Dec 10, 2024 16:03
--- NOTE | 2024-12-06 13:09 | DVHINCON2 ---
Date of service: Dec 06, 2024 Referring Physician Hospitalist Reason for Consultation hematuria History of Present Illness History Source: Patient, RN Notes, MD Notes Exam Limitations: No limitations HPI 59 yo female with h/o cervical cancer s/p total hysterectomy and radiation as well as brachytherapy at [facility]. She was admitted for gross hematuria which she has intermittently since treatment but this episode was worse. She has chronic pelvic pain. She reports today her urine is clear. Home Meds Reported Medications Semaglutide (Ozempic) 8 Mg/3 Ml Inj, 2 MG SC QWEEKLY 12/04/24 Rosuvastatin Calcium (Rosuvastatin Calcium) 20 Mg Tab, 1 TAB PO HS 12/04/24 Past Medical History Hemotology/Oncology: Cancer Renal/: UTI, Hematuria Patient Family History: CKD (chronic kidney disease) G8 FATHER Diabetes mellitus G8 MOTHER, FH: cancer Hypertension G8 MOTHER, G8 FATHER Review of Systems Gastrointestinal: Abdominal Pain Genitourinary: Hematuria H&P Exam Vital Signs Vital Signs Date Time Temp Pulse Resp B/P (MAP) Pulse Ox O2 Delivery O2 Flow Rate FiO2 12/06/24 12:42 96.0 74 20 136/82 (100) 97 96.0 12/06/24 08:08 Room Air* 0 21 General Appeara: Well developed, Well nourished, Normal Appearance Rectal Exam: Deferred Neuro/Mental St: Alert, Oriented Appearance: Appropriate appearance, Appropriate insight Eye contact/ Speech: Cooperative, Good eye contact, Normal speech Skin Exam: Normal inspection, Normal color, Warm/dry Labs/Xrays [place] [id number] Ph: [phone] DIAGNOSTIC IMAGING Diagnostic Imaging Report : [id number] Signed PATIENT: MIKA FAUSTIN EACCT: [id number] UNIT: [id number] : 1965 LOC: OVERFLOW ROOM / BED: [facility]-ER / A AGE / SEX: 59 / F ADM STATUS: ADM IN SERVICE [id number] ORDERING PHYSICIAN: LIAM WOLF PROCEDURE(s): ABPLC - CT ABD PELVIS W CON-ORAL & IV REASON: HX ABNORMAL CT RESULTS ORDER NUMBER(s): [id number], ACCESSION NUMBER(s): [id number] COMPUTERIZED TOMOGRAPHY ABDOMEN AND PELVIS WITH CONTRAST REASON FOR EXAM: HX ABNORMAL CT RESULTS COMPARISON: CT AB PEL WITH IV CON ONLY on DOS: 06/17/21 TECHNIQUE: The exam was performed on a Multidetector scanner. Spiral scans were acquired from the diaphragm to the symphysis pubis after administration of IV contrast. 2-D coronal and sagittal reformatted images were provided. Radiation optimization: All CT scans at this facility use at least one of these dose optimization techniques: Automated exposure control mA and/or kV adjustment per patient size (includes targeted exams where dose is matched to clinical indication) or iterative reconstruction. Oral contrast was also administered. CONTRAST ADMINISTRATION: 84 mL omnipaque 300 intravenously RADIATION DOSE: CTDI: 24.39 mGy DLP: 1330 mGy-cm FINDINGS: There is minimal dependent atelectasis in bilateral lower lobes of the lungs. There is no pleural effusion. There is no pericardial effusion. The spleen is not enlarged. The liver is normal in size. Evaluation of the abdominal organs is degraded by streak artifact from the patient's arms. The portal vein is patent. There is thin calcification at the periphery of the gallbladder that may represent porcelain gallbladder versus a peripherally calcified stone filling the majority of the gallbladder. There is no pericholecystic edema. The pancreas is grossly unremarkable. The adrenal glands are normal. The kidneys enhance symmetrically. No solid renal mass is identified. There is no hydronephrosis of either kidney. The urinary bladder is thick walled. The uterus is absent. The ovaries are not seen. There is no abdominal aortic aneurysm. There is no pathologic lymphadenopathy by size criteria. No free fluid is identified in the abdomen or pelvis. There is mild sigmoid diverticulosis without evidence of diverticulitis. The colonic stool burden is small. The appendix is normal. There is no pathologic distention of the small bowel to suggest obstruction. There are bilateral gluteal prostheses. No acute osseous abnormality is identified. IMPRESSION: Thin calcification at the periphery of the gallbladder that may represent porcelain gallbladder versus a peripherally calcified stone filling the majority of the gallbladder. Follow-up ultrasound is recommended. Thick-walled urinary bladder. Correlate clinically and with urinalysis for possible cystitis. Mild descending colon diverticulosis without evidence of diverticulitis. Normal appendix Prior hysterectomy ATED BY: MU LIMA MD DICTATED DATE/TIME: 12/04/241731 SIGNED BY: MU LIMA MD SIGNED DATE/TIME: 12/04/241731 CC: Labs Test 12/05/24 07:38 12/04/24 16:30 12/04/24 04:41 12/03/24 17:21 Range/Units White Blood Count 6.8 4.4-10.8 10^3/uL Red Blood Count 4.46 4.0-5.20 10^6/uL Hemoglobin 13.1 12.2-16.2 g/dL Hematocrit 38.7 # 36.0-46.0 % Mean Corpuscular Volume 86.8 80.0-100.0 fL Mean Corpuscular Hemoglobin 29.3 28.0-32.0 pg Mean Corpuscular Hemoglobin Concent 33.8 32.0-36.0 g/dL Red Cell Distribution Width 13.8 11.8-14.3 % Platelet Count 277 140-450 10^3/uL Mean Platelet Volume 7.3 6.9-10.8 fL Neutrophils (%) (Auto) 42.4 37.0-80.0 % Lymphocytes (%) (Auto) 48.4 10.0-50.0 % Monocytes (%) (Auto) 6.9 0.0-12.0 % Eosinophils (%) (Auto) 1.7 0.0-7.0 % Basophils (%) (Auto) 0.6 0.0-2.0 % Neutrophils # (Auto) 2.9 1.6-8.6 10 ^3/uL Lymphocytes # (Auto) 3.3 0.4-5.4 10 ^3/uL Monocytes # (Auto) 0.5 0-1.3 10 ^3/uL Eosinophils # (Auto) 0.1 0-0.8 10 ^3/uL Basophils # (Auto) 0 0-0.2 10 ^3/uL Nucleated Red Blood Cells 0.2 % Sodium Level 140 136-145 mmol/L Potassium Level 4.0 3.5-5.1 mmol/L Chloride Level 105 98-107 mmol/L Carbon Dioxide Level 26 20-31 mmol/L Anion Gap 9 5-15 Blood Urea Nitrogen 6 L 9-23 mg/dL Creatinine 0.70 0.550-1.02 mg/dL Glomerular Filtration Rate Calc 99 >90 mL/min BUN/Creatinine Ratio 8.6 L 10.0-20.0 Serum Glucose 95 74-106 mg/dL Calcium Level 9.3 8.7-10.4 mg/dL Total Bilirubin 0.6 0.2-1.0 mg/dL Direct Bilirubin 0.2 <0.3 mg/dL Aspartate Amino Transferase (AST) 27 13-40 U/L Alanine Aminotransferase (ALT) 23 7-40 U/L Alkaline Phosphatase 107 46-116 U/L Total Protein 7.6 5.7-8.2 g/dL Albumin 5.0 H 3.2-4.8 g/dL B-Type Natriuretic Peptide 14.40 0-100 pg/mL Urine Color Light-red Yellow Urine Clarity Turbid H Clear Urine pH 6.0 5.0-9.0 Urine Specific [place] 1.011 1.001-1.035 Urine Protein 1+ H Negative Urine Ketones Negative Negative Urine Blood 3+ H Negative /uL Urine Nitrite Negative Negative Urine Bilirubin Negative Negative Urine Urobilinogen Normal Negative mg/dL Urine Leukocyte Esterase 3+ Negative /uL Urine RBC 2852 0 - 4 /hpf Urine WBC Clumps Present None Seen /hpf Urine Microscopic WBC 322 H 0-5 /HPF Urine Squamous Epithelial Cells Few <5 /hpf Urine Bacteria None seen None Seen /hpf Urine Mucus Few None Seen Urine Glucose Normal Normal mg/dL Microbiology Date/Time Source Procedure Growth Status 12/03/24 17:21 Voided Urine Urine Culture - Final Complete Assessment/Plan Problem List: (1) Gross hematuria Plan cysto to be arranged outpt 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
[2024-12-06 16:41] VITALS: BP 138/79; PULSE 66; RESP 20; TEMP 96.8; O2SAT 97
--- NOTE | 2024-12-06 17:22 | DVHPN2 ---
Progress Note Date Seen: Dec 06, 2024 Medical Necessity Reason Pt with a Central, PICC or Fol: No (RN) Objective vital signs Vital Sign Date Time Temp Pulse Resp B/P (MAP) Pulse Ox O2 Delivery O2 Flow Rate FiO2 12/06/24 16:41 96.8 66 20 138/79 (98) 97 96.8 12/06/24 08:08 Room Air* 0 21 Total Intake and Output 12/05/24 12/05/24 12/06/24 15:00 23:00 07:00 Intake Total 476 ml 720 ml 1000 ml Balance 476 ml 720 ml 1000 ml medications Current Medications Medications Dose Ordered Sig/Ijllian Route Start Time Stop Time Status Last Admin Dose Admin Ceftriaxone Sodium 50 ml @ 100 mls/hr DAILY@1700 IV 12/04/24 17:00 12/06/24 16:24 100 MLS/HR Pantoprazole Sodium 40 mg DAILY IV 12/04/24 10:00 12/06/24 08:13 40 MG Sodium Chloride 1,000 ml @ 100 mls/hr Q10H IV 12/05/24 14:45 12/06/24 10:49 100 MLS/HR Acetaminophen/ Hydrocodone Bitart 1 tab Q6HP PRN PO 12/05/24 20:45 12/06/24 08:13 1 TAB laboratory and microbiology Laboratory Tests 12/05/24 07:38 Test 12/05/24 07:38 Range/Units Serum Glucose 95 74-106 mg/dL Microbiology Date/Time Source Procedure Growth Status 12/03/24 17:21 Voided Urine Urine Culture - Final Complete Problem List/Assessment/Plan Problem List/Assessment/Plan ADEBRILE VSS ABD SOFT NON TENDER EVAL ONGOING CONTINUE CLOSE OBSERVATION Plan discussed with: Patient Dietary Evaluation Review Recommendations by RD: Dietary education by RD Comments: 1) Add 45g CCHO restriction to cardiac diet 2) Refer to outpatient RD for weight management 3) Follow-up with gastroenterology, oncology, and urology 4) Continue to monitor I&O, labs, and skin integrity Expected Outcomes/Goals: 1) appetite and labs to improve 2) f/u in 3-5 days GENI GALVAN MD Dec 06, 2024 17:22
[2024-12-06 21:05] VITALS: BP 134/74; PULSE 71; RESP 17; TEMP 98.3; O2SAT 96
[2024-12-07 01:22] VITALS: BP 123/74; PULSE 73; RESP 18; TEMP 97.9; O2SAT 98
[2024-12-07 05:17] VITALS: BP 134/76; PULSE 67; RESP 17; TEMP 97.8; O2SAT 95
[2024-12-07 06:31] LABS: Hematocrit 37.2 % (36.0-46.0); Hemoglobin 12.7 g/dL (12.2-16.2); Mean Corpuscular Hemoglobin 28.9 pg (28.0-32.0); Mean Corpuscular Volume 84.4 fL (80.0-100.0); Nucleated Red Blood Cells % 0.0 %
[2024-12-07 06:38] LABS: Calcium 9.3 mg/dL (8.7-10.4); Chloride 105 mmol/L (98-107); Potassium 4.0 mmol/L (3.5-5.1); Sodium 141 mmol/L (136-145)
[2024-12-07 06:39] LABS: Anion Gap 10 (5-15); Carbon Dioxide 26 mmol/L (20-31)
[2024-12-07 06:44] LABS: BUN/Creatinine Ratio 10.7 (10.0-20.0); Glucose 104 mg/dL (74-106)
[2024-12-07 06:45] LABS: Blood Urea Nitrogen 8 mg/dL (9-23)
[2024-12-07 09:00] VITALS: BP 139/74; PULSE 75; RESP 20; TEMP 98; O2SAT 95
[2024-12-07 13:00] VITALS: BP 129/85; PULSE 77; RESP 18; TEMP 97.9; O2SAT 98
[2024-12-07] MEDS ORDERED: AUG875T PO (14:07)
--- NOTE | 2024-12-07 15:30 | DVHDSRES ---
Discharge Summary Date of Admission Resident Creating Document: LIAM WOLF RESIDENT Dec 03, 2024 at 22:35 Date of Discharge: Dec 07, 2024 Labs/Diagnostic Data: Laboratory Results Test 12/07/24 05:15 12/04/24 16:30 12/04/24 04:41 12/03/24 17:21 White Blood Count 7.1 10^3/uL (4.4-10.8) Red Blood Count 4.41 10^6/uL (4.0-5.20) Hemoglobin 12.7 g/dL (12.2-16.2) Hematocrit 37.2 % (36.0-46.0) Mean Corpuscular Volume 84.4 fL (80.0-100.0) Mean Corpuscular Hemoglobin 28.9 pg (28.0-32.0) Mean Corpuscular Hemoglobin Concent 34.2 g/dL (32.0-36.0) Red Cell Distribution Width 13.9 % (11.8-14.3) Platelet Count 259 10^3/uL (140-450) Mean Platelet Volume 7.2 fL (6.9-10.8) Neutrophils (%) (Auto) 48.5 % (37.0-80.0) Lymphocytes (%) (Auto) 43.1 % (10.0-50.0) Monocytes (%) (Auto) 6.0 % (0.0-12.0) Eosinophils (%) (Auto) 2.0 % (0.0-7.0) Basophils (%) (Auto) 0.4 % (0.0-2.0) Neutrophils # (Auto) 3.5 10 ^3/uL (1.6-8.6) Lymphocytes # (Auto) 3.1 10 ^3/uL (0.4-5.4) Monocytes # (Auto) 0.4 10 ^3/uL (0-1.3) Eosinophils # (Auto) 0.1 10 ^3/uL (0-0.8) Basophils # (Auto) 0 10 ^3/uL (0-0.2) Nucleated Red Blood Cells 0.0 % Sodium Level 141 mmol/L (136-145) Potassium Level 4.0 mmol/L (3.5-5.1) Chloride Level 105 mmol/L (98-107) Carbon Dioxide Level 26 mmol/L (20-31) Anion Gap 10 (5-15) Blood Urea Nitrogen 8 mg/dL (9-23) Creatinine 0.75 mg/dL (0.550-1.02) Glomerular Filtration Rate Calc 91 mL/min (>90) BUN/Creatinine Ratio 10.7 (10.0-20.0) Serum Glucose 104 mg/dL (74-106) Calcium Level 9.3 mg/dL (8.7-10.4) Total Bilirubin 0.6 mg/dL (0.2-1.0) Direct Bilirubin 0.2 mg/dL (<0.3) Aspartate Amino Transferase (AST) 27 U/L (13-40) Alanine Aminotransferase (ALT) 23 U/L (7-40) Alkaline Phosphatase 107 U/L (46-116) Total Protein 7.6 g/dL (5.7-8.2) Albumin 5.0 g/dL (3.2-4.8) B-Type Natriuretic Peptide 14.40 pg/mL (0-100) Urine Color Light-red (Yellow) Urine Clarity Turbid (Clear) Urine pH 6.0 (5.0-9.0) Urine Specific [place] 1.011 (1.001-1.035) Urine Protein 1+ (Negative) Urine Ketones Negative (Negative) Urine Blood 3+ /uL (Negative) Urine Nitrite Negative (Negative) Urine Bilirubin Negative (Negative) Urine Urobilinogen Normal mg/dL (Negative) Urine Leukocyte Esterase 3+ /uL (Negative) Urine RBC 2852 /hpf (0 - 4) Urine WBC Clumps Present /hpf (None Seen) Urine Microscopic WBC 322 /HPF (0-5) Urine Squamous Epithelial Cells Few /hpf (<5) Urine Bacteria None seen /hpf (None Seen) Urine Mucus Few (None Seen) Urine Glucose Normal mg/dL (Normal) Other Laboratory Tests 12/07/24 05:15 Brief Hx & Hospital Course: 59-year-old female with a history of cervical cancer (status post hysterectomy, radiation), gastric cancer, breast tumor (non-malignant, recent negative biopsy), and diabetes mellitus presented to the ED with gross hematuria and lower abdominal pain radiating to the right shoulder and arm. She denied fever, chills, chest pain, neurological symptoms, or changes in bowel or bladder habits. She has a chemo port on the right side of her chest and reports chronic pelvic pain since cancer treatment. Urinalysis revealed turbid urine with proteinuria, hematuria, and elevated WBCs, raising concern for a possible acute complicated urinary tract infection. CT abdomen/pelvis showed a thick-walled bladder and peripheral gallbladder calcification concerning for porcelain gallbladder versus gallstones. Abdominal ultrasound confirmed gallstones without cholecystitis. Bladder ultrasound showed moderate distention without focal wall thickening. Urology was consulted for further evaluation. The patient was started on IV ceftriaxone for suspected UTI. Chest X-ray showed no acute cardiopulmonary disease. Pain was managed conservatively, and she remained hemodynamically stable throughout admission. Patient was discussed with Dr. Sam, and it was decided that the patient will follow up at his clinic after discharge for further evaluation with cystoscopy as clinically indicated. Operations or Procedures PROCEDURE(s): ABPLC - CT ABD PELVIS W CON-ORAL & IV REASON: HX ABNORMAL CT RESULTS ORDER NUMBER(s): [id number], ACCESSION NUMBER(s): [id number] COMPUTERIZED TOMOGRAPHY ABDOMEN AND PELVIS WITH CONTRAST REASON FOR EXAM: HX ABNORMAL CT RESULTS COMPARISON: CT AB PEL WITH IV CON ONLY on DOS: 06/17/21 TECHNIQUE: The exam was performed on a Multidetector scanner. Spiral scans were acquired from the diaphragm to the symphysis pubis after administration of IV contrast. 2-D coronal and sagittal reformatted images were provided. Radiation optimization: All CT scans at this facility use at least one of these dose optimization techniques: Automated exposure control mA and/or kV adjustment per patient size (includes targeted exams where dose is matched to clinical indication) or iterative reconstruction. Oral contrast was also administered. CONTRAST ADMINISTRATION: 84 mL omnipaque 300 intravenously RADIATION DOSE: CTDI: 24.39 mGy DLP: 1330 mGy-cm FINDINGS: There is minimal dependent atelectasis in bilateral lower lobes of the lungs. There is no pleural effusion. There is no pericardial effusion. The spleen is not enlarged. The liver is normal in size. Evaluation of the abdominal organs is degraded by streak artifact from the patient's arms. The portal vein is patent. There is thin calcification at the periphery of the gallbladder that may represent porcelain gallbladder versus a peripherally calcified stone filling the majority of the gallbladder. There is no pericholecystic edema. The pancreas is grossly unremarkable. The adrenal glands are normal. The kidneys enhance symmetrically. No solid renal mass is identified. There is no hydronephrosis of either kidney. The urinary bladder is thick walled. The uterus is absent. The ovaries are not seen. There is no abdominal aortic aneurysm. There is no pathologic lymphadenopathy by size criteria. No free fluid is identified in the abdomen or pelvis. There is mild sigmoid diverticulosis without evidence of diverticulitis. The colonic stool burden is small. The appendix is normal. There is no pathologic distention of the small bowel to suggest obstruction. There are bilateral gluteal prostheses. No acute osseous abnormality is identified. IMPRESSION: Thin calcification at the periphery of the gallbladder that may represent porcelain gallbladder versus a peripherally calcified stone filling the majority of the gallbladder. Follow-up ultrasound is recommended. Thick-walled urinary bladder. Correlate clinically and with urinalysis for possible cystitis. Mild descending colon diverticulosis without evidence of diverticulitis. Normal appendix Prior hysterectomy - PROCEDURE(s): BLDR - BLADDER REASON: HEMATURIA ORDER NUMBER(s): [id number], ACCESSION NUMBER(s): [id number] Technique: Real-time ultrasound images through the bladder. Indication: HEMATURIA Comparison: None Findings: Moderate distention of the bladder. Bladder prevoid volume of 114 cc. Bladder wall thickness of 3 mm. Impression: Moderate distention of the bladder without definitive focal wall thickening. Further evaluation with cystoscopy can be obtained as clinically warranted. EXAM: XY CHEST PORTABLE Indication: cough Technique: Single frontal view of the chest was obtained Comparison: XY CHEST TWO VIEWS ROUTINE on DOS: 05/21/23, CHEST PORTABLE on DOS: 06/17/21 FINDINGS: Lines and Tubes: Right chest port tip projects over superior vena cava. Lungs: No focal consolidation. Pleura: No effusion. No pneumothorax. Cardiomediastinal contours: Unremarkable. Atherosclerotic vascular calcifications of the thoracic aorta are noted. Bones: No acute osseous abnormality. IMPRESSION: No acute cardiopulmonary disease. Condition at Discharge: Stable Final Diagnosis/Problems List # Hematuria r/o cancer recurrence # Possible acute complicated UTI # History of cervical cancer # History of gastric cancer Discharge Disposition: Home SNF Discharge Will this Physician continue t: No (RN) Discharge Instruct/Medications Diet: Regular Activity: No Restrictions, As Tolerated Follow Up/Referral: Follow up with Dr. Sam within 1 week. Scheduled Amoxicillin & Pot Clavulanate (Augmentin Tablet), 875 MG PO BID Rosuvastatin Calcium (Rosuvastatin Calcium), 1 TAB PO HS, (Reported) Semaglutide (Ozempic), 2 MG SC QWEEKLY, (Reported) Discharge Statement: "Patient was advised to return to the ER or call 911 if any headaches, dizziness, shortness of breath, chest pain, abdominal pain, bleeding, fevers, or worsening of medical condition. Patient was counseled about treatment plan, medications, possible side effects, patientverbalized understanding. All questions were answered to the best of my ability. This discharge took greater then 30 minutes in planning, reviewing documentation, counseling the patient, and discussing with other team members." ASSESSMENT ASSESSMENT Assessment # Hematuria r/o cancer recurrence # Possible acute complicated UTI # History of cervical cancer # History of gastric cancer Date of Service: Dec 07, 2024 Billing Provider: JULISSA BEYER MD Common Visit Codes: 04917-BUL/OBS DISCH DAY >30min LIAM WOLF RESIDENT Dec 07, 2024 15:30 JULISSA BEYER MD Dec 10, 2024 20:47
[2024-12-07 15:47] VITALS: BP 133/91; TEMP 36.6
== END 2024-12-07 16:55 | disposition home or self-care (01) | DRG 463 ==
LOC: ER 13:56 → OVERFLOW 22:35 → WEST WING 12-04 18:00
PROVIDERS: ADMIT Internal Medicine Geriatric Medicine; ATTEND Internal Medicine Geriatric Medicine
DX: N30.00 Acute cystitis without hematuria (principal); B96.89 Other specified bacterial agents as the cause of diseases classified elsewhere; E11.9 Type 2 diabetes mellitus without complications; G89.29 Other chronic pain; I10 Essential (primary) hypertension; N20.0 Calculus of kidney; K80.20 Calculus of gallbladder without cholecystitis without obstruction; K82.8 Other specified diseases of gallbladder; Z79.2 Long term (current) use of antibiotics; Z79.899 Other long term (current) drug therapy; Z85.41 Personal history of malignant neoplasm of cervix uteri; Z90.710 Acquired absence of both cervix and uterus; Z85.028 Personal history of other malignant neoplasm of stomach; Z83.3 Family history of diabetes mellitus; Z82.49 Family history of ischemic heart disease and other diseases of the circulatory system
CPT/HCPCS: 36415; 71045; 74177; 76857; 80048; 80053; 80076; 81001; 83880; 85025; 87086; 96361; 96374; 96375; G0378; J2405; J2470